=== PATIENT | female | born 1950 | race Caucasian/White ===

== ENCOUNTER → 2017-04-12 | Outpatient (CLI) | payer OTHER, MEDICARE ==
[~2017-04-12] MED LIST: ACET-1256 PO; ASPI325T39 PO; CALC-51 PO; CHOL100027 PO; LISI-792 PO; MAGN250T8 PO; METO25TA3 PO; MULT-506 PO
== END | disposition home or self-care (01) ==
LOC: C.MAMM 09:13
PROVIDERS: ATTEND Internal Medicine
DX: M81.0 Age-related osteoporosis without current pathological fracture (principal)

== ENCOUNTER 2020-04-06 03:36 | Inpatient (IN) ==
[2020-04-06] MEDS ORDERED: fentaNYL citrate 100 MCG/2 ML VIAL IV STA (03:53)
--- NOTE | 2020-04-06 04:21 | Emergency Department Note ---
Impression & Plan Hip fracture, right, Elbow fracture, right, Fall ED Provider Note NAME: KING SHIPMAN AGE: 69 SEX: F ARRIVES VIA: Ambulance INFORMANT: Patient ED PROVIDER(S): Jia Mckeon DO CHIEF COMPLAINT: Right hip pain PLAN: Disposition: Admitted Condition: Stable MEDICAL DECISION MAKING: This is a 69-year-old female patient with a history of hypertension and osteoporosis who unfortunately was pulled to the ground while walking her dog and suffered a right hip fracture and right elbow fracture. The patient did not strike her head or lose consciousness. I discussed the case with the hospitalist and they will evaluate for inpatient care and consult orthopedics. Triage Nursing notes reviewed and agree them. Prior medical records reviewed Vital Signs: reviewed and unremarkable Differential diagnosis: Pelvis fracture, right hip contusion, right hip fracture, right elbow fracture, right elbow contusion ER treatment provided: IV fentanyl IV morphine IV Zofran Sling placement to the right elbow Diagnostics interpreted by me: ECG: Sinus bradycardia at a rate of 53. There is no ST segment elevation or signs of ischemia Cardiac Monitoring: Normal sinus rhythm at a rate of 62. Imaging studies: As per my interpretation Right hip x-ray: Intertrochanteric fracture Right elbow x-ray: Olecranon fracture Laboratory studies: See below HPI: 69/F arrives for evaluation of right hip pain. The patient was walking her dog when she was pulled to the ground by the dog landing on her right side. She suffered an injury to the right hip and the right elbow. The patient laid there for approximately 1 hour before someone heard her yelling for help. EMS was called and she was transported here. ROS: See above HPI for pertinent positives & negatives. A total of 10 systems reviewed and were otherwise negative. PAST MEDICAL HISTORY:Hypertension and osteoporosis PAST SURGICAL HISTORY:See Below SOCIAL HISTORY:The patient lives alone: She does not smoke HOME MEDICATIONS:See list ALLERGIES:See Below VITALS:See Below PHYSICAL EXAMINATION: HEENT: Head - normocephalic and atraumatic. Pupils are equal, round, and reactive to light. Extraocular eye muscles are intact and sclera are anicteric. Nose - moist nasal mucosa without evidence of trauma or discharge. Mouth - moist buccal mucosa with no trauma to the teeth or signs of malocclusion. Neck: The neck is supple and there is no pain to palpation over the posterior cervical spine and no obvious step-offs or deformities. There is no JVD or tracheal deviation. Chest: There are no signs of deformities, contusions or abrasions to the chest wall. There is no obvious crepitus or paradoxical chest rise. Heart: Regular, rate, and rhythm. There is a normal S1 and S2 with no murmurs, clicks, or gallops appreciated. Lungs: Clear to auscultation bilaterally with no wheezes, rales, or rhonchi. Abdomen: Soft, completely nontender, nondistended, with good bowel sounds. There is no sign of trauma such as contusions, abrasions or penetrations. There are no palpable pulsatile masses or hepatosplenomegaly. There is no guarding, rigidity, or rebound noted. Pelvis: Stable to rock and compression. Extremities: The right lower extremity was shortened and internally rotated. Patient has tenderness to palpation over the right hip. The patient has a small abrasion over the right elbow but has pain to palpation over the olecranon. He has easily palpable distal radial pulse in that extremity. Other extremities are without evidence of trauma. Neuro: The patient is awake and alert and easily able to follow commands. Muscle strength is 5 out of 5 in all 4 extremities. Otherwise, neuro exam is unremarkable. Back: The entire thoracic, lumbar, and sacral spine were palpated. There are no obvious step-offs or deformities noted. There are no obvious signs of trauma such as contusions abrasions penetrations noted to the back. ED COURSE:0340: The patient was evaluated in room B9. A complete history and physical was performed. An IV lock was initiated and laboratory studies were drawn as above. A twelve- lead EKG was obtained. The patient went for plain films of the right hip. She was given 50 mcg of IV fentanyl for pain. This gave her minimal relief of her discomfort. The patient had a chest x-ray performed for preop reasons. She then complained of worsening right elbow pain and had an x-ray of the elbow which showed an olecranon fracture. A sling was placed. The patient had persistent right hip pain and was given 2 mg of IV morphine and 4 mg of IV Zofran for her discomfort. Case was discussed with the hospitalist and they will evaluate for further management. 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 Required: No Beliefs That Will Affect Care: None Current Living Situation: Alone Feels Safe at Home: Yes Assistive Devices: Walker Allergies Allergies Allergy/AdvReac Type Severity Reaction Status Date / Time No Known Allergies Allergy Verified 04/06/20 04:20 Home Meds Home Medications Medication Instructions Recorded Confirmed acetaminophen [Tylenol Extra 1,000 mg PO BID 04/06/20 04/06/20 Strength] aspirin 162.5 mg PO QAM 04/06/20 04/06/20 calcium carbonate-vitamin D3 2 tab PO QAM 04/06/20 04/06/20 [Calcium 600 + D(3)] cetirizine [Zyrtec] 10 mg PO QAM 04/06/20 04/06/20 cholecalciferol (vitamin D3) 25 mcg PO QAM 04/06/20 04/06/20 [Vitamin D3] lisinopril 20 mg PO QDD 04/06/20 04/06/20 metoprolol succinate 25 mg PO QDD 04/06/20 04/06/20 multivitamin 1 tab PO QAM 04/06/20 04/06/20 psyllium husk [Metamucil] 0.52 g PO DAILY 04/06/20 04/06/20 Results & Data (ED) Vital Signs Vital Signs - 24 hr 04/06/20 05:20 04/06/20 05:30 04/06/20 06:00 Pulse Rate 55 L 54 L 54 L Pulse Rate from SpO2 Sensor 55 L 54 L Respiratory Rate 16 12 14 Blood Pressure 121/58 L 101/50 L 101/52 L Blood Pressure Mean 72 60 59 Pulse Oximetry 96 93 93 Oxygen Delivery Method Room Air Room Air Room Air 04/06/20 06:30 Pulse Rate 53 L Pulse Rate from SpO2 Sensor Respiratory Rate 12 Blood Pressure 102/52 L Blood Pressure Mean 59 Pulse Oximetry Oxygen Delivery Method Laboratory Data Result diagrams: 04/06/20 04:20 04/06/20 04:20 Lab Results 04/06/20 04/06/20 04/06/20 Range/Units 04:20 04:20 04:20 WBC 6.98 (4.8-10.8) K/uL RBC 3.90 L (4.2-5.4) M/uL Hgb 12.5 (12.0-16.0) g/dL Hct 36.0 L (37-47) % MCV 92.3 (80-100) fL MCH 32.1 (25-34) pg MCHC 34.7 (32-36) g/dL RDW Std Deviation 40.2 (36.4-46.3) fL RDW Coeff of Dave 11.8 (11.5-14.5) % Plt Count 326 (130-400) K/uL MPV 9.0 (7.4-10.4) fL Immature Gran % (Auto) 0.3 % Neut % (Auto) 68.8 % Lymph % (Auto) 18.2 % [place] % (Auto) 11.3 % Eos % (Auto) 1.1 % Baso % (Auto) 0.3 % Neut # (Auto) 4.80 (1.4-6.5) K/uL Lymph # (Auto) 1.27 (1.2-3.4) K/uL [place] # (Auto) 0.79 H (0.11-0.59) K/uL Eos # (Auto) 0.08 (0-0.5) K/uL Baso # (Auto) 0.02 (0-0.2) K/uL Immature Gran # (Auto) 0.02 (0.00-0.02) K/uL PT 10.4 (9.0-12.0) Seconds INR 1.0 (0.9-1.1) APTT 24.1 (21.0-31.0) Seconds PTT Ratio 0.9 Sodium (136-145) mmol/L Potassium (3.5-5.1) mmol/L Chloride (98-107) mmol/L Carbon Dioxide (21-32) mmol/L Anion Gap (3-11) BUN (7-18) mg/dl Creatinine (0.6-1.2) mg/dl Est Cr Clr Drug Dosing ml/min Est GFR ( Amer) Est GFR (Non-Af Amer) BUN/Creatinine Ratio (10-20) Glucose (70-99) mg/dl Calcium (8.5-10.1) mg/dl Urine Color Urine Appearance (Clear) Urine pH (4.5-7.5) Ur Specific [place] (1.000-1.030) Urine Protein (Negative) Urine Glucose (UA) (Negative) Urine Ketones (Negative) Urine Blood (Negative) Urine Nitrite (Negative) Urine Bilirubin (Negative) Urine Urobilinogen (Negative) Ur Leukocyte Esterase (Negative) Blood Type B Positive Antibody Screen NEGATIVE 04/06/20 04/06/20 Range/Units 04:20 04:25 WBC (4.8-10.8) K/uL RBC (4.2-5.4) M/uL Hgb (12.0-16.0) g/dL Hct (37-47) % MCV (80-100) fL MCH (25-34) pg MCHC (32-36) g/dL RDW Std Deviation (36.4-46.3) fL RDW Coeff of Dave (11.5-14.5) % Plt Count (130-400) K/uL MPV (7.4-10.4) fL Immature Gran % (Auto) % Neut % (Auto) % Lymph % (Auto) % [place] % (Auto) % Eos % (Auto) % Baso % (Auto) % Neut # (Auto) (1.4-6.5) K/uL Lymph # (Auto) (1.2-3.4) K/uL [place] # (Auto) (0.11-0.59) K/uL Eos # (Auto) (0-0.5) K/uL Baso # (Auto) (0-0.2) K/uL Immature Gran # (Auto) (0.00-0.02) K/uL PT (9.0-12.0) Seconds INR (0.9-1.1) APTT (21.0-31.0) Seconds PTT Ratio Sodium 135 L (136-145) mmol/L Potassium 4.0 (3.5-5.1) mmol/L Chloride 105 (98-107) mmol/L Carbon Dioxide 23 (21-32) mmol/L Anion Gap 7.0 (3-11) BUN 18 (7-18) mg/dl Creatinine 0.96 (0.6-1.2) mg/dl Est Cr Clr Drug Dosing 44.1 ml/min Est GFR ( Amer) 69.4 Est GFR (Non-Af Amer) 59.9 BUN/Creatinine Ratio 18.5 (10-20) Glucose 113 H (70-99) mg/dl Calcium 9.2 (8.5-10.1) mg/dl Urine Color Yellow Urine Appearance Clear (Clear) Urine pH 8.5 H (4.5-7.5) Ur Specific [place] 1.007 (1.000-1.030) Urine Protein Negative (Negative) Urine Glucose (UA) Negative (Negative) Urine Ketones Negative (Negative) Urine Blood Negative (Negative) Urine Nitrite Negative (Negative) Urine Bilirubin Negative (Negative) Urine Urobilinogen Negative (Negative) Ur Leukocyte Esterase Negative (Negative) Blood Type Antibody Screen Administered Medications Hydromorphone HCl (Hydromorphone Inj 0.5 Mg/0.5 Ml Syr) 0.25 - 0.5 mg IV Q3H PRN PRN Reason: Moderate/Severe Pain Stop: 04/20/20 09:08 Last Admin: 04/06/20 09:38 Dose: 0.5 mg Documented by: [id number] Famotidine 20 mg/ Syringe 5 mls @ 2.5 mls/min IV Q12 [facility] Stop: 05/06/20 20:59 Last Admin: 04/06/20 21:15 Dose: 2.5 mls/min Documented by: [id number] Cefazolin Sodium (Ancef 1000mg) 1,000 mg in 7.5 mls @ 2.5 mls/min IV PREOP [facility]; Protocol Stop: 04/07/20 05:59 Last Admin: 04/06/20 13:58 Dose: 2.5 mls/min Documented by: [id number] Sodium Chloride (Nss 1000ml) 1,000 mls @ 100 mls/hr IV .Q10H [facility] Stop: 04/07/20 06:00 Last Admin: 04/06/20 21:10 Dose: 100 mls/hr Documented by: [id number] Cefazolin Sodium (Ancef 1000mg) 1,000 mg in 7.5 mls @ 2.5 mls/min IV Q8H [facility]; Protocol Stop: 04/07/20 06:02 Last Admin: 04/06/20 21:59 Dose: 2.5 mls/min Documented by: [id number] Metoprolol Succinate (Metoprolol Succ 25mg Ext Rel Tab) 25 mg PO QDD [facility] Stop: 05/06/20 16:29 Last Admin: 04/06/20 18:55 Dose: Not Given Documented by: [id number] Senna/Docusate Sodium (Docusate Sodium/Senna 50/8.6mg Tab) 2 tab PO HS LYNDA Stop: 05/06/20 20:59 Last Admin: 04/06/20 21:15 Dose: 2 tab Documented by: [id number] Discontinued Medications Bupivacaine HCl (Bupivacaine 0.5 % 5 Mg/1 Ml Mpf 30ml Vial) Confirm Administered Dose 30 ml .ROUTE .STK-MED ONE Stop: 04/06/20 14:24 Last Admin: 04/06/20 15:25 Dose: 22 ml Documented by: [id number] Bupivacaine HCl (Bupivacaine 0.5 % 5 Mg/1 Ml Mpf 30ml Vial) Confirm Administered Dose 30 ml .ROUTE .STK-MED ONE Stop: 04/06/20 16:17 Last Admin: 04/06/20 17:15 Dose: 10 ml Documented by: [id number] Famotidine (Famotidine 20mg/5ml Iv Push) Confirm Administered Dose 20 mg IV .STK-MED ONE Stop: 04/06/20 08:15 Last Admin: 04/06/20 08:17 Dose: 20 mg Documented by: [id number] Fentanyl Citrate (Fentanyl Citrate 100 Mcg/2 Ml Vial) 50 mcg IV NOW STA Stop: 04/06/20 03:54 Last Admin: 04/06/20 04:03 Dose: 50 mcg Documented by: [id number] Potassium Chloride/Sodium Chloride (Normal Saline W/20 Meq Kcl) 20 meq in 1,000 mls @ 100 mls/hr IV .Q10H LYNDA Stop: 05/06/20 09:08 Last Infusion: 04/06/20 19:46 Dose: 0 mls/hr Documented by: [id number] Admin: 04/06/20 09:46 Dose: 100 mls/hr Documented by: [id number] Morphine Sulfate (Morphine Sulfate 2 Mg/Ml Carp) 2 mg IV NOW STA Stop: 04/06/20 05:01 Last Admin: 04/06/20 05:14 Dose: 2 mg Documented by: [id number] Ondansetron HCl (Ondansetron Inj 2 Mg/Ml 2 Ml Vial) 4 mg IV NOW STA Stop: 04/06/20 05:01 Last Admin: 04/06/20 05:14 Dose: 4 mg Documented by: [id number] Discharge Plan Visit Data Chief Complaint: Fall Stated Complaint: FALL ED Provider: Jia Mckeon Discharge Problem: Hip fracture, right, Elbow fracture, right, Fall Patient Disposition: Admitted As Inpatient Discharge Instructions Interventions: ED Discharge Assessment Last Done: 04/06/20 08:27 Discharge Problem: Hip fracture, right Qualifiers: Encounter type: initial encounter Fracture type: closed Qualified Code(s): S72.001A - Fracture of unspecified part of neck of right femur, initial encounter for closed fracture Elbow fracture, right Qualifiers: Encounter type: initial encounter Fracture type: closed Qualified Code(s): S42.401A - Unspecified fracture of lower end of right humerus, initial encounter for closed fracture Fall Qualifiers: Encounter type: initial encounter Qualified Code(s): W19.XXXA - Unspecified fall, initial encounter
[2020-04-06 04:33] LABS: Basophils # (auto) 0.02 K/uL (0-0.2); Basophils % (auto) 0.3 %; Eosinophils # (auto) 0.08 K/uL (0-0.5); Eosinophils % (auto) 1.1 %; Hemoglobin 12.5 g/dL (12.0-16.0); Immature Granulocytes # (auto) 0.02 K/uL (0.00-0.02); Immature Granulocytes % (auto) 0.3 %; Lymphocytes # (auto) 1.27 K/uL (1.2-3.4); Lymphocytes % (auto) 18.2 %; Mean Corpuscular Hemoglobin 32.1 pg (25-34); Mean Corpuscular Hgb Conc 34.7 g/dL (32-36); Mean Corpuscular Volume 92.3 fL (80-100); Monocytes # (auto) 0.79 K/uL (0.11-0.59); Monocytes % (auto) 11.3 %; Neutrophils % (auto) 68.8 %; Platelet Count 326 K/uL (130-400); RDW Coefficient of Variation 11.8 % (11.5-14.5); RDW Standard Deviation 40.2 fL (36.4-46.3); White Blood Count 6.98 K/uL (4.8-10.8)
[2020-04-06 04:45] LABS: Partial Thromboplastin Ratio 0.9; Partial Thromboplastin Time 24.1 Seconds (21.0-31.0); Prothrombin Time 10.4 Seconds (9.0-12.0)
[2020-04-06 04:47] LABS: Appearance Urine Clear (Clear); Bilirubin Urine Negative (Negative); Blood Urine Negative (Negative); Color Urine Yellow; Glucose Urine UA Negative (Negative); Ketones Urine Negative (Negative); Leukocyte Esterase Urine Negative (Negative); Nitrite Urine Negative (Negative); Protein Urine Negative (Negative); Specific Gravity Urine 1.007 (1.000-1.030); Urobilinogen Urine Negative (Negative); pH Urine 8.5 (4.5-7.5)
[2020-04-06 04:51] LABS: BUN Creatinine Ratio 18.5 (10-20); Calcium 9.2 mg/dl (8.5-10.1); Creatinine Clr Calc Pharmacy 44.1 ml/min; Est GFR (African American) 69.4; Est GFR (Non-African American) 59.9
[2020-04-06] MEDS ORDERED: ONDANSETRON INJ 2 MG/ML 2 ML VIAL IV STA (05:00)
[2020-04-06] MEDS ORDERED: MoRPHine SULFATE 2 MG/ML CARP IV STA (05:00)
[2020-04-06] MEDS ORDERED: ceFAZolin 1000MG 1,000 MG/7.5 ML SYR IV SCH (06:00)
--- NOTE | 2020-04-06 06:45 | History & Physical Report ---
Date of Service April 06, 2020 Assessment & Plan (1) Closed right hip fracture: Closed right hip fracture status post mechanical fall- Geriatric hip fracture protocol Chapin's traction Acetaminophen 650 mg p.o. every 6 hours PRN mild pain or temperature, or 1000 mg IV every 8 hours PRN. Oxycodone 5 mg p.o. every 6 hours PRN moderate pain Dilaudid 0.25-0.5 mg IV every 3 hours. Severe pain NSS + KCl 20 mEq at 100 mils per hour Zofran 4 mg IV every 6 hours as needed Famotidine 20 mg IV every 12 hours Consult [facility] COVID19 test ordered stat preop EKG shows sinus bradycardia at 53 bpm, with no acute ST-T changes. Chest x-ray is normal. Patient is considered an acceptable medical risk for hip repair surgery Present on Admission?: Yes (2) Hypertension: Hypertension/history of symptomatic PVCs- Continue metoprolol succinate 25 mg p.o. daily in a.m. Hold lisinopril 20 mg daily and aspirin 162.5 mg daily Present on Admission?: Yes (3) Symptomatic PVCs: See above Present on Admission?: Yes (4) Allergic rhinitis: Resume cetirizine, 10mg po. every morning as needed post surgery Present on Admission?: Yes History of Present Illness Chief Complaint: The patient presents to the emergency room after sustaining acute right hip pain during a fall while walking her dog this morning. Primary Care Provider: Clementina Ortiz MD The patient is a 69-year-old female with a past medical history including hypertension, allergic rhinitis, and vitamin D deficiency. She presents to the emergency department after developing acute right hip pain and right elbow pain after a fall while she was walking her dog. X-rays in the emergency department revealed a closed right hip fracture. She reports that her right hip pain pain is reasonably well controlled well staying still. Her right elbow pain is improving with application of ice. Allergies Allergy/AdvReac Type Severity Reaction Status Date / Time No Known Allergies Allergy Verified 04/06/20 04:20 Home Medications Home Medications Medication Instructions Recorded Confirmed Type acetaminophen [Tylenol Extra 1,000 mg PO BID 04/06/20 04/06/20 History Strength] aspirin 162.5 mg PO QAM 04/06/20 04/06/20 History calcium carbonate-vitamin D3 2 tab PO QAM 04/06/20 04/06/20 History [Calcium 600 + D(3)] cetirizine [Zyrtec] 10 mg PO QAM 04/06/20 04/06/20 History cholecalciferol (vitamin D3) 25 mcg PO QAM 04/06/20 04/06/20 History [Vitamin D3] lisinopril 20 mg PO QDD 04/06/20 04/06/20 History metoprolol succinate 25 mg PO QDD 04/06/20 04/06/20 History multivitamin 1 tab PO QAM 04/06/20 04/06/20 History psyllium husk [Metamucil] 0.52 g PO DAILY 04/06/20 04/06/20 History Past Med/Surg History Medical History (Updated 04/06/20 @ 06:57 by Harvey Braun MD) Allergic rhinitis Hypertension Social History Smoking Status: Never smoker Feels Safe at Home: Yes Review of Systems Review of Systems: The patient denies chest pain, palpitations, shortness of breath, dyspnea on exertion, cough, lower extremity swelling, sore throat, fevers, chills, sweats, weight change, fatigue, nausea, vomiting, diarrhea , constipation, abdominal pain, pelvic pain, blood in urine or stool, dysuria, urinary frequency or urgency, lightheadedness, dizziness, headache, memory loss, loss of consciousness, rash, abnormal bruising or bleeding, imbalance, generalized weakness, numbness or tingling in left arm or leg, generalized arthralgias or myalgias, back or neck pain, or night sweats. The review of systems is otherwise negative other than for that already noted above, and at least 10 systems have been reviewed. Physical Exam Physical Exam: The patient is awake, alert and oriented 3, well developed and well nourished, normocephalic and atraumatic, lying in bed and in no acute distress. HEENT--PERRL, EOMI, mucous membranes and oropharynx normal. Neck--supple. No JVD. No bruits. Thyroid normal, trachea midline, no adenopathy. Heart--normal S1 and S2. No murmurs, rubs or gallops. Lungs--clear bilaterally, no respiratory distress, no accessory muscle use. Abdomen--normal bowel sounds and soft. Nontender. Nondistended. Extremities--no cyanosis or clubbing. No edema. There are good distal pulses b/l. Dermatologic--normal skin turgor, normal color, no abnormal lymph nodes, no rash. Neurologic--cranial nerves II through XII grossly intact. Rheumatologic--decreased range of motion and pain over right hip Psychiatric--normal affect. Results & Data Results & Data ([facility]) Vital Signs (Past 12 Hours) Vital Signs Temp Pulse Resp BP Pulse Ox 04/06/20 06:00 54 L 14 101/52 L 93 04/06/20 05:30 54 L 12 101/50 L 93 04/06/20 05:20 55 L 16 121/58 L 96 04/06/20 03:50 97.7 F 57 L 18 112/77 100 04/06/20 03:43 55 L 13 112/77 100 Laboratory Results Laboratory Results WBC 6.98 K/uL (4.8-10.8) 04/06/20 04:20 RBC 3.90 M/uL (4.2-5.4) L 04/06/20 04:20 Hgb 12.5 g/dL (12.0-16.0) 04/06/20 04:20 Hct 36.0 % (37-47) L 04/06/20 04:20 MCV 92.3 fL (80-100) 04/06/20 04:20 MCH 32.1 pg (25-34) 04/06/20 04:20 MCHC 34.7 g/dL (32-36) 04/06/20 04:20 RDW Std Deviation 40.2 fL (36.4-46.3) 04/06/20 04:20 RDW Coeff of Dave 11.8 % (11.5-14.5) 04/06/20 04:20 Plt Count 326 K/uL (130-400) 04/06/20 04:20 MPV 9.0 fL (7.4-10.4) 04/06/20 04:20 Immature Gran % (Auto) 0.3 % 04/06/20 04:20 Neut % (Auto) 68.8 % 04/06/20 04:20 Lymph % (Auto) 18.2 % 04/06/20 04:20 [place] % (Auto) 11.3 % 04/06/20 04:20 Eos % (Auto) 1.1 % 04/06/20 04:20 Baso % (Auto) 0.3 % 04/06/20 04:20 Neut # (Auto) 4.80 K/uL (1.4-6.5) 04/06/20 04:20 Lymph # (Auto) 1.27 K/uL (1.2-3.4) 04/06/20 04:20 [place] # (Auto) 0.79 K/uL (0.11-0.59) H 04/06/20 04:20 Eos # (Auto) 0.08 K/uL (0-0.5) 04/06/20 04:20 Baso # (Auto) 0.02 K/uL (0-0.2) 04/06/20 04:20 Immature Gran # (Auto) 0.02 K/uL (0.00-0.02) 04/06/20 04:20 PT 10.4 Seconds (9.0-12.0) 04/06/20 04:20 INR 1.0 (0.9-1.1) 04/06/20 04:20 APTT 24.1 Seconds (21.0-31.0) 04/06/20 04:20 PTT Ratio 0.9 04/06/20 04:20 Sodium 135 mmol/L (136-145) L 04/06/20 04:20 Potassium 4.0 mmol/L (3.5-5.1) 04/06/20 04:20 Chloride 105 mmol/L (98-107) 04/06/20 04:20 Carbon Dioxide 23 mmol/L (21-32) 04/06/20 04:20 Anion Gap 7.0 (3-11) 04/06/20 04:20 BUN 18 mg/dl (7-18) 04/06/20 04:20 Creatinine 0.96 mg/dl (0.6-1.2) 04/06/20 04:20 Est Cr Clr Drug Dosing 44.1 ml/min 04/06/20 04:20 Est GFR ( Amer) 69.4 04/06/20 04:20 Est GFR (Non-Af Amer) 59.9 04/06/20 04:20 BUN/Creatinine Ratio 18.5 (10-20) 04/06/20 04:20 Glucose 113 mg/dl (70-99) H 04/06/20 04:20 Calcium 9.2 mg/dl (8.5-10.1) 04/06/20 04:20 Urine Color Yellow 04/06/20 04:25 Urine Appearance Clear (Clear) 04/06/20 04:25 Urine pH 8.5 (4.5-7.5) H 04/06/20 04:25 Ur Specific [place] 1.007 (1.000-1.030) 04/06/20 04:25 Urine Protein Negative (Negative) 04/06/20 04:25 Urine Glucose (UA) Negative (Negative) 04/06/20 04:25 Urine Ketones Negative (Negative) 04/06/20 04:25 Urine Blood Negative (Negative) 04/06/20 04:25 Urine Nitrite Negative (Negative) 04/06/20 04:25 Urine Bilirubin Negative (Negative) 04/06/20 04:25 Urine Urobilinogen Negative (Negative) 04/06/20 04:25 Ur Leukocyte Esterase Negative (Negative) 04/06/20 04:25 Blood Type B Positive 04/06/20 04:20 Antibody Screen NEGATIVE 04/06/20 04:20 Code Status & VTE Plan Code Status Full code VTE Prophylaxis Plan VTE Prophylaxis will be ordered: Yes PG Care Time/CCT Total # of Minutes Spent Total Time Spent with Patient: Total time spent is greater than 50% in coordination of care (as documented) at patient's floor/unit and/or counseling patient: Coding Level of Care Code 02437 Initial Inpt Care Lvl 3 Diagnoses Closed right hip fracture S72.001A Hypertension I10 Symptomatic PVCs I49.3 Allergic rhinitis J30.9
--- NOTE | 2020-04-06 07:43 | XRay Report ---
XR elbow RT 2V CLINICAL HISTORY: Fall. COMPARISON: None FINDINGS: Joint effusion is present. Note is made of an acute comminuted moderately displaced olecra non fracture which extends to the ulnotrochlear articulation. There is no acute fracture of the dista l right humerus or proximal right radius. Soft tissue swelling overlying the olecranon is noted. IMPRESSION: 1. Acute comminuted displaced olecranon fracture. 2. Joint effusion and soft tissue swelling overlying the olecranon. ACT 112: Negative or not required by law. Electronically signed by: Diego Lucio M.D. 04/06/2020 7:42 AM
--- NOTE | 2020-04-06 07:51 | XRay Report ---
XR hip RT min 2V CLINICAL HISTORY: fall - rt hip pain COMPARISON: None FINDINGS: Note is made of an acute displaced intertrochanteric fracture of the left femur. Fracture is angulated. No additional fractures are identified on this examination. IMPRESSION: Acute displaced intertrochanteric fracture of the right femur. ACT 112: Negative or not required by law. Electronically signed by: Diego Lucio M.D. 04/06/2020 7:49 AM
--- NOTE | 2020-04-06 08:00 | XRay Report ---
XR chest 1V portable CLINICAL HISTORY: Preoperative evaluation. COMPARISON STUDY: Chest radiograph February 22, 2014. FINDINGS: Lung volumes are normal. Lungs are clear. There is no pneumothorax or pleural effusion. Car diac size is normal. Mediastinal contours are normal. There is no evidence for pulmonary edema. IMPRESSION: No acute cardiopulmonary findings. ACT 112: Negative or not required by law. Electronically signed by: Diego Lucio M.D. 04/06/2020 7:59 AM
[2020-04-06] MEDS ORDERED: FAMOTIDINE 20MG/5ML IV PUSH IV ONE (08:14)
[2020-04-06] MEDS ORDERED: ONDANSETRON INJ 2 MG/ML 2 ML VIAL IV PRN ×3 (09:09→18:39)
[2020-04-06] MEDS ORDERED: MAGNESIUM HYDROXIDE SUSP 30 ML UDC PO PRN ×2 (09:09→18:39)
[2020-04-06] MEDS ORDERED: NALOXONE HCL 0.4 MG/1 ML VIAL/CARP IV PRN ×3 (09:09→18:39)
[2020-04-06] MEDS ORDERED: ACETAMINOPHEN 1000 MG/100 ML IV IV PRN (09:09)
[2020-04-06] MEDS ORDERED: bisacodyL 10 MG SUPP PR PRN ×2 (09:09→18:39)
[2020-04-06] MEDS: HYDROmorphone INJ 0.5 MG/0.5 ML SYR IV PRN (09:38)
[2020-04-06] MEDS ORDERED: NSS + 20MEQ KCL 20 MEQ/1,000 ML BAG IV SCH (10:00)
--- NOTE | 2020-04-06 10:56 | Anesthesiology Consultation ---
Date of Service April 06, 2020 Assessment & Plan Chart Review Chart Review: Acceptable Risk for Surgery and Patient NOT seen in Pre Admission Testing Consults Requested none ASA [id number] Proposed Anesthesia Anesthesia Type: General History Surgery Operation Date: 04/06/20 12:00 Proposed Procedures s Open Reduction Internal Fixation Elbow(Right) - Jaime Joel MD p Intramedullary Nail Tibia(Right) - Jaime Joel MD Height/Weight Height: 5 ft 7 in Weight: 50.3 kg Allergies Allergy/AdvReac Type Severity Reaction Status Date / Time No Known Allergies Allergy Verified 04/06/20 04:20 Medications Home Medications Medication Instructions Recorded Confirmed Last Taken acetaminophen [Tylenol Extra 1,000 mg PO BID 04/06/20 04/06/20 04/05/20 Strength] aspirin 162.5 mg PO QAM 04/06/20 04/06/20 04/05/20 calcium carbonate-vitamin D3 2 tab PO QAM 04/06/20 04/06/20 04/05/20 [Calcium 600 + D(3)] cetirizine [Zyrtec] 10 mg PO QAM 04/06/20 04/06/20 04/05/20 cholecalciferol (vitamin D3) 25 mcg PO QAM 04/06/20 04/06/20 04/05/20 [Vitamin D3] lisinopril 20 mg PO QDD 04/06/20 04/06/20 04/05/20 metoprolol succinate 25 mg PO QDD 04/06/20 04/06/20 04/05/20 multivitamin 1 tab PO QAM 04/06/20 04/06/20 04/05/20 psyllium husk [Metamucil] 0.52 g PO DAILY 04/06/20 04/06/20 04/05/20 Active Medications Generic Name Dose Route Start Last Admin Trade Name Freq PRN Reason Stop Dose Admin Hydromorphone HCl 0.25 - 0.5 mg 04/06/20 09:09 04/06/20 09:38 Hydromorphone Inj 0.5 Mg/0.5 Ml Syr IV 04/20/20 09:08 0.5 mg Q3H PRN Administration Moderate/Severe Pain Potassium Chloride/Sodium Chloride 20 meq in 1,000 mls @ 100 mls/hr 04/06/20 10:00 04/06/20 09:46 Normal Saline W/20 Meq Kcl IV 05/06/20 09:08 100 mls/hr .Q10H LYNDA Administration Past Medical History Medical History Allergic rhinitis Hypertension Exercise / Class Metabolic Activity III < 4 Walking/Shop/Light housework Past Anesthesia History No Hx of Anesthesia Complications and No Family Hx of Anesthesia Complications History of PONV No Hx of PONV and No Hx of Motion Sickness Social History Smoking Status: Never smoker Do You Dip or Chew Tobacco: No Hx Alcohol Use: No Hx Substance Use: No Physical Exam Vital Signs Last Vital Signs Temp 36.3 C L 04/06/20 08:40 Pulse 56 L 04/06/20 08:40 Resp 16 04/06/20 08:40 BP 114/70 04/06/20 08:40 Pulse Ox 99 04/06/20 08:40 Testing Laboratory Results 04/06/20 04:20 04/06/20 04:20 PT 10.4 Seconds (9.0-12.0) 04/06/20 04:20 INR 1.0 (0.9-1.1) 04/06/20 04:20 APTT 24.1 Seconds (21.0-31.0) 04/06/20 04:20 Urine Color Yellow 04/06/20 04:25 Urine Appearance Clear (Clear) 04/06/20 04:25 Urine pH 8.5 (4.5-7.5) H 04/06/20 04:25 Ur Specific [place] 1.007 (1.000-1.030) 04/06/20 04:25 Urine Protein Negative (Negative) 04/06/20 04:25 Urine Glucose (UA) Negative (Negative) 04/06/20 04:25 Urine Ketones Negative (Negative) 04/06/20 04:25 Urine Nitrite Negative (Negative) 04/06/20 04:25 Ur Leukocyte Esterase Negative (Negative) 04/06/20 04:25 Blood Type B Positive 04/06/20 04:20 Antibody Screen NEGATIVE 04/06/20 04:20 Electrocardiogram Date: 04/06/20 Findings: + SB @ (at 53 ,otherwise normal) Chest X-Ray Date: 04/06/20 Findings: + NAD Other Testing 10/02/2012-Carotid U/S-no H/D sig. stenosis;mild athersclerotic plaque
--- NOTE | 2020-04-06 12:23 | Electrocardiogram Report ---
Test Reason : Blood Pressure : / mmHG Vent. Rate : 053 BPM Atrial Rate : 053 BPM P-R Int : 180 ms QRS Dur : 092 ms QT Int : 442 ms P-R-T Axes : 057 041 064 degrees QTc Int : 414 ms Poor data quality, interpretation may be adversely affected Sinus bradycardia Otherwise normal ECG When compared with ECG of 22-FEB-2014 14:09, No significant change was found Confirmed by Sandro Serrano ([id number]) on 04/06/2020 12:23:07 PM Referred By: REFERRED SELF Confirmed By:Sandro Serrano
[2020-04-06] MEDS ORDERED: ONDANSETRON INJ 2 MG/ML 2 ML VIAL ONE (12:45)
[2020-04-06] MEDS ORDERED: GLYCOPYRROLATE 0.2 MG/ML VIAL ONE (12:45)
[2020-04-06] MEDS ORDERED: LIDOCAINE HCL 2% 2 ML VIAL/AMP(20MG/ML) INFIL ONE (12:45)
[2020-04-06] MEDS ORDERED: fentaNYL citrate 100 MCG/2 ML VIAL ONE ×2 (12:45→16:22)
[2020-04-06] MEDS ORDERED: DEXAMETHASONE SOD INJ 4 MG/ML VIAL ONE (12:45)
[2020-04-06] MEDS ORDERED: NEOSTIGMINE METHYLSULFATE 5 MG/5 ML SYR ONE (12:45)
[2020-04-06] MEDS ORDERED: PROPOFOL IV EMULSION 10 MG/ML 20 ML VIAL IV ONE (12:45)
[2020-04-06] MEDS ORDERED: ROCURONIUM BROMIDE 10 MG/ML 5 ML VIAL IV ONE (12:45)
[2020-04-06] MEDS ORDERED: MIDAZOLAM HCL 1 MG/ML 2ML VIAL ONE (13:21)
[2020-04-06] MEDS ORDERED: BUPIVACAINE 0.5 % 5 MG/1 ML MPF 30ML VIAL ONE ×2 (14:23→16:16)
--- NOTE | 2020-04-06 17:20 | Post Operative Brief Note ---
Immediate Post Op Note v1 Date of Surgery April 06, 2020 Pre & Post Diagnosis Operation Date: 04/06/20 14:00 Pre-Op Diagnosis: 1. Acute displaced intertrochanteric fracture of the right femur 2. Acute comminuted displaced olecranon fracture right Post-Op Diagnosis: 1. Acute displaced intertrochanteric fracture of the right femur 2. Acute comminuted displaced olecranon fracture right I identified the patient and participated in the time-out.: Yes Procedure Operation Date: 04/06/20 14:00 Actual Procedures p Open Reduction Internal Fixation Right Olecranon Elbow(Right) - Jaime Joel MD s Intramedullary Anand Right Femur(Right) - Jaime Joel MD Surgeon Jaime Joel MD Folder Inspector jackie viera PA-c Estimated Blood Loss 100 Findings Consistent with Post-Op Diagnosis
--- NOTE | 2020-04-06 17:27 | Fluoroscopy Report ---
INTRAOPERATIVE RADIOGRAPHS CLINICAL HISTORY: Open reduction and internal fixation of the right femur. Fluoroscopy time: 194 seconds. FINDINGS: 4 spot fluoroscopic views of the right femur are correlated with radiographs dated 04/06/20 20. Intertrochanteric and intramedullary nails have been placed transfixing an intertrochanteric frac ture. There has been temple of near-anatomic alignment. A single cortical lag screw transfixes t he distal end of the intramedullary nail. IMPRESSION: Intraoperative images from open reduction and internal fixation of the right proximal fem ur as above. Electronically signed by: Quan Hamlin M.D. 04/06/2020 3:54 PM
--- NOTE | 2020-04-06 17:27 | Fluoroscopy Report ---
INTRAOPERATIVE RADIOGRAPHS CLINICAL HISTORY: Open reduction and internal fixation of the right femur. Fluoroscopy time: 194 seconds. FINDINGS: 4 spot fluoroscopic views of the right femur are correlated with radiographs dated 04/06/20 20. Intertrochanteric and intramedullary nails have been placed transfixing an intertrochanteric frac ture. There has been jewish of near-anatomic alignment. A single cortical lag screw transfixes t he distal end of the intramedullary nail. IMPRESSION: Intraoperative images from open reduction and internal fixation of the right proximal fem ur as above. Electronically signed by: Quan Hamlin M.D. 04/06/2020 3:54 PM
--- NOTE | 2020-04-06 17:38 | Fluoroscopy Report ---
INTRAOPERATIVE RADIOGRAPHS CLINICAL HISTORY: Open reduction and internal fixation of the right elbow. Fluoroscopy time: 21 seconds. FINDINGS: 4 spot fluoroscopic views of the right elbow are correlated with radiographs dated 04/06/20 20. There has been buttress plate fixation of an olecranon process fracture with orthodox of near- anatomic alignment. At least 7 cortical lag screws transfix the buttress plate. The orthopedic hardwa re appears intact. Overlying soft tissue edema is noted. IMPRESSION: Intraoperative images from open reduction and internal fixation of the olecranon as above . Electronically signed by: Quan Hamlin M.D. 04/06/2020 5:36 PM
[2020-04-06] MEDS ORDERED: ATROPINE SULFATE 0.1 MG/ML 10ML SYR IV PRN (17:55)
[2020-04-06] MEDS ORDERED: LABETALOL HCL IV 5 MG/ML 20ML IV PRN (17:55)
[2020-04-06] MEDS ORDERED: fentaNYL citrate 100 MCG/2 ML VIAL IV PRN (17:55)
[2020-04-06] MEDS ORDERED: FLUMAZENIL 0.1 MG/1 ML 10 ML VIAL IV PRN (17:55)
[2020-04-06] MEDS ORDERED: ePHEDrine sulfate 50 MG/ML AMP IV PRN (17:55)
[2020-04-06] MEDS ORDERED: PROMETHAZINE HCL 12.5 MG in SODIUM CHLORIDE 0.9% 50 ML IV PRN (17:55)
--- NOTE | 2020-04-06 18:32 | Consultation Report ---
DATE OF CONSULTATION: 04/06/2020 Status post anterior right hip fracture, right olecranon fracture. INDICATIONS: This 69-year-old female, who was walking her dog at approximately 2:00 a.m., she sustained a mechanical trip and fall with complaints of pain in the right hip and the right elbow. She was seen in the Emergency Department, diagnosed with a fracture and referred for definitive treatment. PAST MEDICAL HISTORY: Hypertension, allergic rhinitis, known history of osteoporosis. MEDICATIONS: 1. Tylenol. 2. Aspirin. 3. Calcium. 4. Zyrtec. 5. Lisinopril. 6. Metoprolol. 7. Multivitamin. 8. Metamucil. LABORATORY STUDIES: Hemoglobin 12.5, white count 6.98. UA negative. PHYSICAL EXAMINATION: Right lower extremity exam, she has pain with log roll of the right hip. She has no open injuries. Right calf is nontender to palpation. She can flex and extend the ankle, but is limited secondary to discomfort. Right elbow exam does show a displaced olecranon fracture which is palpable, small hematoma is seen over the olecranon. Radial, ulnar, median nerves are grossly intact to function, but exam is limited secondary to discomfort. IMAGING: AP, lateral of the right hip does show displaced intertrochanteric hip fracture. Varus angulation is seen. Minimal comminution seen in the greater trochanteric area. Three views of the right elbow shows a displaced olecranon fracture. Mild to moderate amount of comminution is seen. She has good alignment of the radial head with the capitellum. ASSESSMENT: A 69-year-old female with: 1. Right intertrochanteric hip fracture. 2. Right olecranon fracture, displaced. PLAN: Discussed findings and treatment with her. I discussed the nature of the injury. We discussed operative versus nonoperative treatment. RECOMMENDATION: 1. Right intramedullary nail fixation of intertrochanteric hip fracture. 2. Right open reduction and internal fixation of olecranon. I discussed personally with the hospitalist service and at this point in time, she is stable for surgical treatment. We will plan for surgical treatment today. May do tension band K-wire versus plate for the olecranon. The risks and benefits have been discussed including, but not limited to infection, nerve injury, stiffness, loss of motion, decreased ambulatory status, anesthesia complications, etc.
--- NOTE | 2020-04-06 18:49 | Anesthesiology Progress Note ---
Date of Service April 06, 2020 Anesthesia Post Procedure Vital Signs Vital Signs: Temp Pulse Pulse Pulse Resp BP BP 04/06/20 18:42 36.5 C 50 L 14 114/68 04/06/20 18:22 36.4 C L 53 L 14 106/49 L 04/06/20 18:10 55 L 14 116/59 L 04/06/20 18:00 56 L 18 110/54 L 04/06/20 17:50 60 14 113/58 L 04/06/20 17:42 36.8 C 68 14 122/66 04/06/20 11:36 36.9 C 62 16 104/63 04/06/20 08:40 36.3 C L 56 L 16 114/70 04/06/20 08:18 87 20 108/50 L 04/06/20 08:00 54 L 12 88/42 L 04/06/20 07:31 55 L 16 100/42 L 04/06/20 07:30 57 L 15 04/06/20 07:00 61 14 91/53 L 04/06/20 06:30 53 L 12 102/52 L 04/06/20 06:00 54 L 14 101/52 L 04/06/20 05:30 54 L 12 101/50 L 04/06/20 05:20 55 L 16 121/58 L 04/06/20 03:50 36.5 C 57 L 18 112/77 04/06/20 03:43 55 L 13 112/77 Pulse Ox 04/06/20 18:42 100 04/06/20 18:22 95 04/06/20 18:10 95 04/06/20 18:00 100 04/06/20 17:50 100 04/06/20 17:42 100 04/06/20 11:36 96 04/06/20 08:40 99 04/06/20 08:18 100 04/06/20 08:00 04/06/20 07:31 04/06/20 07:30 04/06/20 07:00 04/06/20 06:30 04/06/20 06:00 93 04/06/20 05:30 93 04/06/20 05:20 96 04/06/20 03:50 100 04/06/20 03:43 100 Pain Intensity Right Hip: Pain Intensity: 10 Transfer of Care Handoff Completed per policy Notes Mental Status: alert / awake / arousable Patient Amnestic to Procedure: Yes Nausea / Vomiting: adequately controlled Pain: adequately controlled Airway Patency, RR, SpO2: stable & adequate BP & HR: stable & adequate Hydration State: stable & adequate Anesthetic Complications: no major complications apparent
[2020-04-06] MEDS: METOPROLOL SUCC 25MG EXT REL TAB PO SCH (18:55)
--- NOTE | 2020-04-06 19:55 | Operative Report (OR) ---
DATE OF OPERATION: 04/06/2020 PREOPERATIVE DIAGNOSES: 1. Right intertrochanteric hip fracture with displacement. 2. Right olecranon fracture, displaced, comminuted. PROCEDURE: 1. Right intramedullary nail fixation of intertrochanteric hip fracture. 2. Right open reduction and internal fixation of olecranon fracture with plate. SURGEON: Angel Joel MD. RAIL PROJECT ENGINEER: Israel Rodas PA-C. INDICATIONS: This is a 69-year-old female who sustained the above-mentioned injuries after a fall. She presents for intramedullary nail fixation of the hip and ORIF of the olecranon. The risks and benefits have been discussed including, but not limited to, risk of infection, nerve injury, stiffness, loss of motion, failure to improve, etc. Reasonable outcomes and options of treatment were discussed. An explanation of appropriate alternatives to the procedure that may be advantageous were discussed and their risks and benefits, as well as the risks and benefits of not proceeding with treatment. I offered to answer any additional inquiries concerning the treatment involved. All the patient's questions were answered. The patient is agreeable, understanding of the treatment plan and alternatives, and wishes to proceed with the treatment plan. ANESTHESIA: General. DESCRIPTION OF OPERATION: The patient was placed on the fracture table and longitudinal traction was applied. This did result in good reduction of a hip fracture. After the patient was prepped and draped in standard fashion, I made a longitudinal incision about 2 inches in length superior to the greater trochanter. I bluntly dissected through the fascial layer and the greater trochanter was identified. I then placed a guidewire for a Synthes TFN nail into the greater trochanter. This was placed in the central aspect of the canal of the femur at a 6-degree angle on the AP x-ray. Once this was accomplished, I then overreamed with a size 13 reamer. The patient did show evidence of osteoporosis and bones were radiographically thin. I also overdrilled with the entry reamer prior to passing the second reamer down the canal. The guidewire was placed in the canal and then over the guidewire, I placed a Synthes TFN mid length nail. This was placed in appropriate position and then I placed a guidewire up into the femoral neck and care was taken to maintain the center-center position on a C-arm. I made an incision over the guidewire and inserted the jig down to bone. I then drilled the anterior cortical reamer followed by the second reamer. I selected a size 95 screw and this was placed in slight compression fashion. This resulted in excellent fixation and alignment. I then made an additional incision for the interlocking screw and the guides were placed. I drilled the proximal cortex, but the guide did not line up with the nail, so I placed a screw in a freehand fashion. Size 34 screw was selected and this was replaced resulted in excellent bite and was checked on C-arm fluoroscopy that it was centralized within the nail. Incisions were irrigated. Fascial layer was closed with 2-0 Vicryl. Lincoln were used on the skin. I injected Marcaine in the local area at the conclusion of the procedure. Attention was focused on the olecranon. The patient was then redraped on the hand table in the supine position. I made a longitudinal incision over the olecranon. Dissection was carried down through skin and subcutaneous tissues. Olecranon fracture was identified. There was significant comminution both medially and laterally in the region of the olecranon. I elected to proceed with plate fixation rather than a tension band K-wire fixation. I placed a Synthes olecranon plate with the oblong screw first. This was then adjusted for position and I placed 3 screws proximally in a locking fashion maintaining good alignment of the joint. I then placed 3 additional screws distally in a locking fashion resulted in stable fixation of the joint. The patient was placed through range of motion. There was no evidence of crepitation with range of motion. There was supple pronation, supination as well as flexion and extension. Incision was irrigated. Fascial layer was closed with a plate with 2-0 Vicryl Rapide. Yvan were used on the skin. The patient was placed in a posterior splint and sent to the PACU in stable condition. Postoperative plan will be partial weightbearing for the hip with platform walker. We will allow gentle motion of the elbow beginning on postop day 10-14. instructional support assistant, Israel Rodas PA-C, who was necessary for prepping, draping, retraction, exposure, closure, reprepping, redraping for the olecranon fracture, retraction, exposure, closure. I attest to the content of the Intraoperative Record and any orders documented therein. Any exception s are noted below.
[2020-04-06] MEDS ORDERED: DOCUSATE SODIUM 100 MG CAP PO SCH (21:00)
[2020-04-06] MEDS ORDERED: SENNA 8.6 MG TAB PO SCH (21:00)
[2020-04-06] MEDS: SODIUM CHLORIDE 0.9% 1000ML 1,000 ML IV SCH (21:10)
[2020-04-06] MEDS: FAMOTIDINE 20 MG in SYRINGE 3 ML IV SCH (21:15)
[2020-04-06] MEDS: DOCUSATE SODIUM/SENNA 50/8.6MG TAB PO SCH (21:15)
[2020-04-06] MEDS: ceFAZolin 1000MG 1,000 MG/7.5 ML SYR IV SCH (21:59)
[2020-04-07] MEDS: ceFAZolin 1000MG 1,000 MG/7.5 ML SYR IV SCH (05:41)
[2020-04-07] MEDS: SODIUM CHLORIDE 0.9% 1000ML 1,000 ML IV SCH (05:44)
[2020-04-07] MEDS ORDERED: ceFAZolin 2000MG 2,000 MG/15 ML SYR IV SCH (06:00)
[2020-04-07 06:36] LABS: Basophils # (auto) 0.01 K/uL (0-0.2); Basophils % (auto) 0.1 %; Hematocrit (blood only) 26.2 % (37-47); Hemoglobin 8.9 g/dL (12.0-16.0); Immature Granulocytes # (auto) 0.02 K/uL (0.00-0.02); Immature Granulocytes % (auto) 0.2 %; Lymphocytes # (auto) 1.03 K/uL (1.2-3.4); Lymphocytes % (auto) 10.7 %; Mean Corpuscular Hemoglobin 31.8 pg (25-34); Mean Corpuscular Volume 93.6 fL (80-100); Monocytes # (auto) 1.04 K/uL (0.11-0.59); Monocytes % (auto) 10.8 %; Neutrophils # (auto) 7.52 K/uL (1.4-6.5); Neutrophils % (auto) 78.2 %; Platelet Count 291 K/uL (130-400); RDW Coefficient of Variation 12.3 % (11.5-14.5); RDW Standard Deviation 41.8 fL (36.4-46.3); White Blood Count 9.62 K/uL (4.8-10.8)
[2020-04-07 06:39] LABS: Partial Thromboplastin Ratio 0.8; Partial Thromboplastin Time 23.1 Seconds (21.0-31.0); Prothrombin Time 10.1 Seconds (9.0-12.0)
[2020-04-07 07:04] LABS: Albumin Level 2.4 gm/dl (3.4-5.0); BUN Creatinine Ratio 20.7 (10-20); Calcium 7.6 mg/dl (8.5-10.1); Creatinine Clr Calc Pharmacy 50.7 ml/min; Est GFR (Non-African American) 72.5; Magnesium 2.1 mg/dl (1.8-2.4); Phosphorus 2.3 mg/dl (2.5-4.9); Potassium 3.7 mmol/L (3.5-5.1)
[2020-04-07] MEDS: ACETAMINOPHEN 325 MG TAB PO PRN ×2 (07:13→13:32)
[2020-04-07] MEDS: FAMOTIDINE 20 MG in SYRINGE 3 ML IV SCH (08:39)
[2020-04-07] MEDS: oxyCODONE HCL IR 5 MG TAB (IMMEDIATE RELEASE) PO PRN ×2 (08:39→13:33)
[2020-04-07] MEDS: HYDROmorphone INJ 0.5 MG/0.5 ML SYR IV PRN ×3 (11:20→20:37)
--- NOTE | 2020-04-07 11:40 | Orthopedic Progress Note ---
Date of Service April 07, 2020 Assessment & Plan (1) Hip fracture, right: Status post ORIF right olecranon, right hip cephalomedullary nail Postoperative day #1 -Ancef x24 -DVT prophylaxis: SCDs, teds, Lovenox daily -PT/OT -Nonweightbearing right upper extremity, partial weightbearing right lower extremity -A.m. labs: See above (2) Elbow fracture, right: Admission and Anticipated Discharge Date Admission Date: April 06, 2020 Subjective Post Operative Progress Note Patient seen sitting up in bed, comfortable, denies complaints, pain well controlled, no acute issues. Denies F/C/N/V/SOB/CP. Review of Systems Review of Systems: All systems reviewed & are unremarkable except as noted in HPI & below Physical Exam Physical Exam: Right upper extremity is neurovascular and sensory intact grossly, capillary refill less than 2 seconds, actively moving all 5 digits, dressing clean dry and intact sling immobilizer in place. Right lower extremity is neurovascular and sensory intact grossly, +2 dorsalis pedis pulse, compartment soft nontender, dressing clean dry and intact. Results & Data ([facility]) Vital Signs (Past 12 Hours) Vital Signs Temp Pulse Resp BP Pulse Ox 04/07/20 11:18 79 103/58 L 04/07/20 07:40 36.4 C L 84 16 95/57 L 96 04/07/20 02:38 36.9 C 89 16 99/63 L 99 Laboratory Results 04/07/20 04/07/20 04/07/20 Range/Units 06:02 06:02 06:02 WBC (4.8-10.8) K/uL RBC (4.2-5.4) M/uL Hgb (12.0-16.0) g/dL Hct (37-47) % MCV (80-100) fL MCH (25-34) pg MCHC (32-36) g/dL RDW Std Deviation (36.4-46.3) fL RDW Coeff of Dave (11.5-14.5) % Plt Count (130-400) K/uL MPV (7.4-10.4) fL Immature Gran % (Auto) % Neut % (Auto) % Lymph % (Auto) % Wilson % (Auto) % Eos % (Auto) % Baso % (Auto) % Neut # (Auto) (1.4-6.5) K/uL Lymph # (Auto) (1.2-3.4) K/uL Wilson # (Auto) (0.11-0.59) K/uL Eos # (Auto) (0-0.5) K/uL Baso # (Auto) (0-0.2) K/uL Immature Gran # (Auto) (0.00-0.02) K/uL PT 10.1 (9.0-12.0) Seconds INR 1.0 (0.9-1.1) APTT 23.1 (21.0-31.0) Seconds PTT Ratio 0.8 Sodium 136 (136-145) mmol/L Potassium 3.7 (3.5-5.1) mmol/L Chloride 105 (98-107) mmol/L Carbon Dioxide 24 (21-32) mmol/L Anion Gap 7.0 (3-11) BUN 17 (7-18) mg/dl Creatinine 0.82 (0.6-1.2) mg/dl Est Cr Clr Drug Dosing 50.7 ml/min Est GFR ( Amer) 84.0 Est GFR (Non-Af Amer) 72.5 BUN/Creatinine Ratio 20.7 H (10-20) Glucose 126 H (70-99) mg/dl Calcium 7.6 L D (8.5-10.1) mg/dl Phosphorus 2.3 L (2.5-4.9) mg/dl Magnesium 2.1 (1.8-2.4) mg/dl Albumin 2.4 L (3.4-5.0) gm/dl 25-OH Vitamin D Total 62.5 (30-100) ng/ml 04/07/20 Range/Units 06:02 WBC 9.62 (4.8-10.8) K/uL RBC 2.80 L (4.2-5.4) M/uL Hgb 8.9 L D (12.0-16.0) g/dL Hct 26.2 L (37-47) % MCV 93.6 (80-100) fL MCH 31.8 (25-34) pg MCHC 34.0 (32-36) g/dL RDW Std Deviation 41.8 (36.4-46.3) fL RDW Coeff of Dave 12.3 (11.5-14.5) % Plt Count 291 (130-400) K/uL MPV 9.0 (7.4-10.4) fL Immature Gran % (Auto) 0.2 % Neut % (Auto) 78.2 % Lymph % (Auto) 10.7 % Wilson % (Auto) 10.8 % Eos % (Auto) 0.0 % Baso % (Auto) 0.1 % Neut # (Auto) 7.52 H (1.4-6.5) K/uL Lymph # (Auto) 1.03 L (1.2-3.4) K/uL Wilson # (Auto) 1.04 H (0.11-0.59) K/uL Eos # (Auto) 0.00 (0-0.5) K/uL Baso # (Auto) 0.01 (0-0.2) K/uL Immature Gran # (Auto) 0.02 (0.00-0.02) K/uL PT (9.0-12.0) Seconds INR (0.9-1.1) APTT (21.0-31.0) Seconds PTT Ratio Sodium (136-145) mmol/L Potassium (3.5-5.1) mmol/L Chloride (98-107) mmol/L Carbon Dioxide (21-32) mmol/L Anion Gap (3-11) BUN (7-18) mg/dl Creatinine (0.6-1.2) mg/dl Est Cr Clr Drug Dosing ml/min Est GFR ( Amer) Est GFR (Non-Af Amer) BUN/Creatinine Ratio (10-20) Glucose (70-99) mg/dl Calcium (8.5-10.1) mg/dl Phosphorus (2.5-4.9) mg/dl Magnesium (1.8-2.4) mg/dl Albumin (3.4-5.0) gm/dl 25-OH Vitamin D Total (30-100) ng/ml (1) Hip fracture, right Encounter type: initial encounter Fracture type: closed Qualified Code(s): S72.001A - Fracture of unspecified part of neck of right femur, initial encounter for closed fracture (2) Elbow fracture, right Encounter type: initial encounter Fracture type: closed Qualified Code(s): S42.401A - Unspecified fracture of lower end of right humerus, initial encounter for closed fracture
[2020-04-07] MEDS: ENOXAPARIN INJ 40 MG/0.4 ML SYR SQ SCH (13:33)
--- NOTE | 2020-04-07 13:44 | Medical Student Progress Note ---
Date of Service April 07, 2020 Assessment & Plan (1) Hip fracture, right: 69 y/o female w. hx of hypertension who presented with a a right intertrochanteric fracture and a comminuted olecranon fracture following a fall while walking her dog. 1) Right Displaced Intertrochanteric Fracture- S/p IM nail by ortho -Post-op care per ortho. -PT/OT as she will likely have difficulty managing at home with both the leg and the right arm issues. -DEXA as an outpatient as she now is considered to have a diagnosis of osteoporosis. - Vit D level of 62.5 Will defer to ortho for preferred duration and pharmacologic agent for DVT prophy post-op. -Ancef x24 -DVT prophylaxis: SCDs, teds, Lovenox daily -Nonweightbearing right upper extremity, partial weightbearing right lower extremity 2) Right olecranon fracture- s/p ORIF with ortho -Post-op care per ortho as above 3) HTN- Continue home metoprolol and holding home lisinopril. Dispo: pending PT/OT eval and ortho clearance for discharge. Encounter type: initial encounter Fracture type: closed Qualified Code(s): S72.001A - Fracture of unspecified part of neck of right femur, initial encounter for closed fracture Admission and Anticipated Discharge Date Admission Date: April 06, 2020 Supervising Attestation I personally examined the patient and verified all aguayo points of history and exam, discussed case, and agree with decision making with Kathy Hill MS4. pain reasonable. got out of bed with help. no new complaints. viatls noted nad heent nc at mmm breathing unlabored no accessory muscles good effort skin no rashes no pallor or icterus neuro no focal deficits. (presumed osteoporotic) hip fx - POD1, PT/OT, anticipate rehab. pain control. outpt osteoporosis management. vitamin D OK acute blood loss (fracture related) and hemodilutional anemia - no indications for transfusion. follow. underweight w BMI 17.4 - risk for osteoporosis. otherwise as above. Subjective States that she feels well after surgery and has full sensation and movement of her L upper and lower extremities. She states that her pain is well controlled. Review of Systems Constitutional: no fever, no chills, no sweats and no weakness Respiratory: no cough, no dyspnea, no pain on inspiration and no wheezing Cardiovascular: no dyspnea, no palpitations, no syncope and no edema Gastrointestinal: no abdominal pain, no nausea, no vomiting and no change in bowel habits Neurologic: no tingling, no numbness, no paresthesia and no dizziness Physical Exam Constitutional: Well appearing female in no acute distress resting comfortably in bed Eyes: PERRL, conjunctivae normal, anicteric sclerae Neck: trachea midline, no thyromegaly Respiratory: Lungs clear to auscultation bilaterally, no wheezes, rales or rhonchi Cardiovascular: Regular rate and rhythm, no murmurs, rubs or extra heart sounds. Gastrointestinal (Abdomen): Normoactive bowel sounds, nontender to palpation, no hepatosplenomegaly. Musculoskeletal: Bandages clean, dry and intact on R upper extremity and R lower extremity. Neurovascularly intact in distal RUE and RLE Skin: no rashes, warm and dry Results & Data ([facility]) Vital Signs (Past 12 Hours) Vital Signs Temp Pulse Resp BP Pulse Ox 04/07/20 12:00 36.8 C 85 16 101/56 L 98 04/07/20 11:18 79 103/58 L 04/07/20 07:40 36.4 C L 84 16 95/57 L 96 04/07/20 02:38 36.9 C 89 16 99/63 L 99
[2020-04-07] MEDS: METOPROLOL SUCC 25MG EXT REL TAB PO SCH (16:29)
--- NOTE | 2020-04-07 17:58 | Billing Data ---
Date of Service April 07, 2020 Coding Level of Care Code 23979 Subseq Hosp Care Lvl 2
[2020-04-07] MEDS: FAMOTIDINE 20 MG TAB PO SCH (20:35)
[2020-04-07] MEDS: DOCUSATE SODIUM/SENNA 50/8.6MG TAB PO SCH (20:35)
[2020-04-08] MEDS: HYDROmorphone INJ 0.5 MG/0.5 ML SYR IV PRN ×2 (05:04→08:42)
[2020-04-08 06:05] LABS: Basophils # (auto) 0.01 K/uL (0-0.2); Basophils % (auto) 0.1 %; Hematocrit (blood only) 25.4 % (37-47); Hemoglobin 8.2 g/dL (12.0-16.0); Immature Granulocytes # (auto) 0.03 K/uL (0.00-0.02); Immature Granulocytes % (auto) 0.3 %; Lymphocytes # (auto) 0.71 K/uL (1.2-3.4); Lymphocytes % (auto) 8.3 %; Mean Corpuscular Hemoglobin 30.6 pg (25-34); Mean Corpuscular Hgb Conc 32.3 g/dL (32-36); Mean Corpuscular Volume 94.8 fL (80-100); Mean Platelet Volume 8.8 fL (7.4-10.4); Monocytes # (auto) 1.26 K/uL (0.11-0.59); Monocytes % (auto) 14.7 %; Neutrophils # (auto) 6.57 K/uL (1.4-6.5); Neutrophils % (auto) 76.6 %; Platelet Count 243 K/uL (130-400); RDW Coefficient of Variation 12.3 % (11.5-14.5); RDW Standard Deviation 42.5 fL (36.4-46.3); Red Blood Count 2.68 M/uL (4.2-5.4); White Blood Count 8.58 K/uL (4.8-10.8)
[2020-04-08 06:30] LABS: Albumin Level 2.3 gm/dl (3.4-5.0); BUN Creatinine Ratio 25.2 (10-20); Calcium 7.6 mg/dl (8.5-10.1); Creatinine Clr Calc Pharmacy 68.1 ml/min; Est GFR (African American) 106.5; Est GFR (Non-African American) 91.9; Potassium 3.8 mmol/L (3.5-5.1)
[2020-04-08 06:31] LABS: Phosphorus 2.3 mg/dl (2.5-4.9)
[2020-04-08] MEDS: FAMOTIDINE 20 MG TAB PO SCH (07:34)
[2020-04-08] MEDS: ENOXAPARIN INJ 40 MG/0.4 ML SYR SQ SCH (07:34)
--- NOTE | 2020-04-08 10:16 | Orthopedic Progress Note ---
Date of Service April 08, 2020 Assessment & Plan (1) Hip fracture, right: Status post ORIF right olecranon, right hip cephalomedullary nail Postoperative day #2 -DVT prophylaxis: SCDs, teds, Lovenox daily -PT/OT -Nonweightbearing right upper extremity, partial weightbearing right lower ex tremity -acute blood loss anemia, will defer to primary team re: transfusion if indicated. (2) Elbow fracture, right: Admission and Anticipated Discharge Date Admission Date: April 06, 2020 Subjective Post op Day #2 s/p ORIF right olecranon fracture and troch nail right hip Patient seen sitting up in bed, comfortable, denies complaints, pain well controlled, no acute issues. Denies F/C/N/V/SOB/CP. Physical Exam 2 Physical Exam: Vital Signs Temp 36.9 C 04/08/20 07:29 Pulse 76 04/08/20 07:29 Resp 16 04/08/20 07:29 BP 122/73 04/08/20 07:29 Pulse Ox 100 04/08/20 07:29 Intake & Output 04/07/20 04/08/20 04/08/20 18:59 06:59 18:59 Intake Total 500 / 700 200 / 700 Output Total 325 / 925 600 / 925 Balance 175 / -225 -400 / -225 Intake: Oral 500 / 700 200 / 700 Output: Urine 275 / 275 Urine Amount (Ca theter) 325 / 650 325 / 650 Ortega/Indwelli ng 325 / 650 325 / 650 Constitutional: WD/WN, vitals as above no acute distress Musculoskeletal: Right upper extremity is neurovascular and sensory intact grossly, capillary refill less than 2 seconds, actively moving all 5 digits, dressing clean dry and intact sling immobilizer in place. Right lower extremity is neurovascular and sensory intact grossly, +2 dorsalis pedis pulse, compartment soft nontender, dressing clean dry and intact. Results & Data ([facility]) Vital Signs (Past 12 Hours) Vital Signs Temp Pulse Resp BP Pulse Ox 04/08/20 07:29 36.9 C 76 16 122/73 100 04/07/20 22:50 36.8 C 87 16 107/67 98 Laboratory Results Laboratory Results WBC 8.58 K/uL (4.8-10.8) 04/08/20 05:50 RBC 2.68 M/uL (4.2-5.4) L 04/08/20 05:50 Hgb 8.2 g/dL (12.0-16.0) L 04/08/20 05:50 Hct 25.4 % (37-47) L 04/08/20 05:50 MCV 94.8 fL (80-100) 04/08/20 05:50 MCH 30.6 pg (25-34) 04/08/20 05:50 MCHC 32.3 g/dL (32-36) 04/08/20 05:50 RDW Std Deviation 42.5 fL (36.4-46.3) 04/08/20 05:50 RDW Coeff of Dave 12.3 % (11.5-14.5) 04/08/20 05:50 Plt Count 243 K/uL (130-400) 04/08/20 05:50 MPV 8.8 fL (7.4-10.4) 04/08/20 05:50 Immature Gran % (Auto) 0.3 % 04/08/20 05:50 Neut % (Auto) 76.6 % 04/08/20 05:50 Lymph % (Auto) 8.3 % 04/08/20 05:50 [place] % (Auto) 14.7 % 04/08/20 05:50 Eos % (Auto) 0.0 % 04/08/20 05:50 Baso % (Auto) 0.1 % 04/08/20 05:50 Neut # (Auto) 6.57 K/uL (1.4-6.5) H 04/08/20 05:50 Lymph # (Auto) 0.71 K/uL (1.2-3.4) L 04/08/20 05:50 [place] # (Auto) 1.26 K/uL (0.11-0.59) H 04/08/20 05:50 Eos # (Auto) 0.00 K/uL (0-0.5) 04/08/20 05:50 Baso # (Auto) 0.01 K/uL (0-0.2) 04/08/20 05:50 Immature Gran # (Auto) 0.03 K/uL (0.00-0.02) H 04/08/20 05:50 PT 10.1 Seconds (9.0-12.0) 04/07/20 06:02 INR 1.0 (0.9-1.1) 04/07/20 06:02 APTT 23.1 Seconds (21.0-31.0) 04/07/20 06:02 PTT Ratio 0.8 04/07/20 06:02 Sodium 131 mmol/L (136-145) L 04/08/20 05:50 Potassium 3.8 mmol/L (3.5-5.1) 04/08/20 05:50 Chloride 101 mmol/L (98-107) 04/08/20 05:50 Carbon Dioxide 26 mmol/L (21-32) 04/08/20 05:50 Anion Gap 4.0 (3-11) 04/08/20 05:50 BUN 15 mg/dl (7-18) 04/08/20 05:50 Creatinine 0.61 mg/dl (0.6-1.2) 04/08/20 05:50 Est Cr Clr Drug Dosing 68.1 ml/min 04/08/20 05:50 Est GFR ( Amer) 106.5 04/08/20 05:50 Est GFR (Non-Af Amer) 91.9 04/08/20 05:50 BUN/Creatinine Ratio 25.2 (10-20) H 04/08/20 05:50 Glucose 115 mg/dl (70-99) H 04/08/20 05:50 Calcium 7.6 mg/dl (8.5-10.1) L 04/08/20 05:50 Phosphorus 2.3 mg/dl (2.5-4.9) L 04/08/20 05:50 Magnesium 2.1 mg/dl (1.8-2.4) 04/07/20 06:02 Albumin 2.3 gm/dl (3.4-5.0) L 04/08/20 05:50 25-OH Vitamin D Total 62.5 ng/ml (30-100) 04/07/20 06:02 Urine Color Yellow 04/06/20 04:25 Urine Appearance Clear (Clear) 04/06/20 04:25 Urine pH 8.5 (4.5-7.5) H 04/06/20 04:25 Ur Specific [place] 1.007 (1.000-1.030) 04/06/20 04:25 Urine Protein Negative (Negative) 04/06/20 04:25 Urine Glucose (UA) Negative (Negative) 04/06/20 04:25 Urine Ketones Negative (Negative) 04/06/20 04:25 Urine Blood Negative (Negative) 04/06/20 04:25 Urine Nitrite Negative (Negative) 04/06/20 04:25 Urine Bilirubin Negative (Negative) 04/06/20 04:25 Urine Urobilinogen Negative (Negative) 04/06/20 04:25 Ur Leukocyte Esterase Negative (Negative) 04/06/20 04:25 SARS-CoV-2, RNA, NAAT NEGATIVE (NEGATIVE) 04/06/20 Unknown Blood Type B Positive 04/06/20 04:20 Antibody Screen NEGATIVE 04/06/20 04:20 (1) Hip fracture, right Encounter type: initial encounter Fracture type: closed Qualified Code(s): S72.001A - Fracture of unspecified part of neck of right femur, initial encounter for closed fracture (2) Elbow fracture, right Encounter type: initial encounter Fracture type: closed Qualified Code(s): S42.401A - Unspecified fracture of lower end of right humerus, initial encounter for closed fracture
[2020-04-08] MEDS: oxyCODONE HCL IR 5 MG TAB (IMMEDIATE RELEASE) PO PRN (15:22)
[2020-04-08] MEDS: METOPROLOL SUCC 25MG EXT REL TAB PO SCH (15:24)
--- NOTE | 2020-04-08 15:30 | Discharge Summary ---
Date of Service April 08, 2020 Admission HPI Per Admitting Provider The patient is a 69-year-old female with a past medical history including hypertension, allergic rhinitis, and vitamin D deficiency. She presents to the emergency department after developing acute right hip pain and right elbow pain after a fall while she was walking her dog. X-rays in the emergency department revealed a closed right hip fracture. She reports that her right hip pain pain is reasonably well controlled well staying still. Her right elbow pain is improving with application of ice. Admission Exam Per Admitting Provider The patient is awake, alert and oriented 3, well developed and well nourished, normocephalic and atraumatic, lying in bed and in no acute distress. HEENT--PERRL, EOMI, mucous membranes and oropharynx normal. Neck--supple. No JVD. No bruits. Thyroid normal, trachea midline, no adenopathy. Heart--normal S1 and S2. No murmurs, rubs or gallops. Lungs--clear bilaterally, no respiratory distress, no accessory muscle use. Abdomen--normal bowel sounds and soft. Nontender. Nondistended. Extremities--no cyanosis or clubbing. No edema. There are good distal pulses b/l. Dermatologic--normal skin turgor, normal color, no abnormal lymph nodes, no rash. Neurologic--cranial nerves II through XII grossly intact. Rheumatologic--decreased range of motion and pain over right hip Psychiatric--normal affect. Principal Diagnosis Hip fracture, elbow fracture Discharge Exam Constitutional Well appearing female resting comfortably in bed Eyes PERRL, conjunctivae normal, anicteric sclerae ENMT external ear and nose normal, oropharynx normal Respiratory Lungs clear to auscultation bilaterally, no wheezes, rales or rhonchi Cardiovascular Regular rate and rhythm, no murmurs, rubs or extra heart sounds. No peripheral edema. Gastrointestinal (Abdomen) Normoactive bowel sounds, nontender to palpation, no hepatosplenomegaly Musculoskeletal Surgical dressings clean dry and intact on R elbow, neurovascularly intact in R hand. Surgical dressings in place in R hip, neurovascularly intact in R foot. Psychiatric A+Ox3, euthymic affect Genitourinary Ortega catheter in place Discharge Data Allergies Allergy/AdvReac Type Severity Reaction Status Date / Time No Known Allergies Allergy Verified 04/06/20 04:20 Consultations 04/06/20 06:12 ED Decision to Admit Stat 04/06/20 09:09 Consult Case Management - Discharge Planning Routine Consult Case Management - Discharge Planning Routine Consult Orthopedic Surgery Routine Procedures Performed Operation Date: 04/06/20 14:00 Actual Procedures p Open Reduction Internal Fixation Right Olecranon Elbow(Right) - Jaime Joel MD s Intramedullary Anand Right Femur(Right) - Jaime Joel MD Ordered Studies 04/06/20 12:00 FL elbow RT 3V RTN Routine FL fluoroscopy <1hr Routine FL hip RT 2-3V Routine Hospital Course (1) Hip fracture, right: 69 y/o female w. hx of hypertension who presented with a a right intertrochanteric fracture and a comminuted olecranon fracture following a fall while walking her dog. 1) Right Displaced Intertrochanteric Fracture- S/p IM nail by ortho -Ancef for 24 hrs following surgery -DVT prophylaxis during hospitalization with SCDs, teds and Lovenox daily -DEXA as an outpatient as she now is considered to have a diagnosis of osteoporosis. - Vit D level within normal limits at 62.5 during hospitalization -D/C to rehab with partial weightbearing right lower extremity -F/u with ortho in outpatient setting 2) Right olecranon fracture- s/p ORIF with ortho -Managed as above, nonweightbearing right upper extremity 3) Blood loss anemia: Hgb of 12.5 -> 8.9 -> 8.2 over three days -Hemodynamically stable and asymptomatic throughout hospitalization with no signs of active bleeding. Likely secondary to surgical blood loss and hemodilution when compared to labs on admission. 4) HTN- Managed with home metoprolol succinate 25mg PO and home lisinopril 20mg PO. Total Time Total Time Spent Total Time Spent (In Minutes): <30 Discharge Plan Discharge Items Patient Disposition: Transfer Inpatient Rehab Fac Reason For Visit: CLOSED RT HIP FRACTURE Discharge Diagnosis: hip fracture, olecrenon fracture Activity: Per Instructions section Activity Comment: nonweight bearing RUE, partial weightbearing RLE Non-emergency contact: Primary Care Provider and Surgeon Call non-emergency contact if: you have any medication questions, your symptoms worsen and your pain is not controlled Follow-up/Referrals: Clementina Ortiz MD [Primary Care Provider] - Diet: Regular Addtl Attending Provider Instructions: per orthopedic surgery a/p today: (1) Hip fracture, right: Status post ORIF right olecranon, right hip cephalomedullary nail Postoperative day #2 -DVT prophylaxis: SCDs, teds, Lovenox daily -PT/OT -Nonweightbearing right upper extremity, partial weightbearing right lower extremity -acute blood loss anemia, will defer to primary team re: transfusion if indicated. medically has been quite stable, did show acute blood loss anemia - Hgb from 12.5 --> 8.2 (but has been stable in mid to low 8's last 2 days - would check ~2-3 days and/or prn symptoms) ---PCP to initiate osteoporosis treatment as outpt after rehab discharge Pending Studies at Discharge: No Stand-Alone Forms: My [employer], Opioid Pain Management Skilled Items Patient informed of condition?: Yes DNR: No Discharge Level of Care: Acute rehab Communicable Disease: No Discharge Prognosis: Improving Lines: None Urinary Catheter: No Medications and DC Order Prescriptions: New acetaminophen 325 mg Tablet 650 mg PO Q6H PRN (Reason: pain) Qty: 1 RF: 0 sennosides-docusate sodium [Senokot-S] 8.6-50 mg Tablet 2 tab PO HS Qty: 2 RF: 0 oxycodone 5 mg Tablet 5 mg PO Q4H PRN (Reason: breakthrough pain) Qty: 10 RF: 0 Continued multivitamin Tablet 1 tab PO QAM RF: 0 cetirizine [Zyrtec] 10 mg Tablet 10 mg PO QAM RF: 0 lisinopril 20 mg tablet 20 mg PO QDD RF: 0 acetaminophen [Tylenol Extra Strength] 500 mg Tablet 1,000 mg PO BID RF: 0 metoprolol succinate 25 mg tablet extended release 24 hr 25 mg PO QDD RF: 0 cholecalciferol (vitamin D3) [Vitamin D3] 25 mcg (1,000 unit) Capsule 25 mcg PO QAM RF: 0 psyllium husk [Metamucil] 0.52 gram Capsule 0.52 g PO DAILY RF: 0 calcium carbonate-vitamin D3 [Calcium 600 + D(3)] 600 mg(1,500mg) -400 unit Tablet 2 tab PO QAM RF: 0 aspirin 162.5 mg Capsule,Extended Release 24hr 162.5 mg PO QAM RF: 0 Discharge Orders: Discharge Order (Routine); Ordered 04/08/20 Ordered By: Claudio Crawford/Other Patient Handouts: Oxycodone tablets or capsules Admission Data Admit Date/Time: 04/06/20 06:43 Attending Provider: Claudio Acuna Admit Provider: Harvey Braun Primary Care Provider: Clementina Ortiz Other Providers: Harvey Braun ; Jaime Joel ; Jose Dean ; [facility] Other Interventions: Discharge Summary Assessment (RN) Last Done: 04/08/20 16:22 Supervising Physician Co-Signing Physician Notes I personally examined the patient and verified all aguayo points of history and exam, discussed case, and agree with decision making with Kathy Hill MS4. doing ok. nervous about rehab but feels OK w going. viatls noted nad heent nc at mmm breathing unlabored no accessory muscles good effort skin no rashes no pallor or icterus neuro no focal deficits. (presumed osteoporotic) hip fx - POD2, PT/OT, stable for rehab. outpt osteoporo sis management. vitamin D OK acute blood loss (fracture related) and hemodilutional anemia - no indications for transfusion. follow up as outpt. underweight w BMI 17.4 - risk for osteoporosis. otherwise as above.
== END 2020-04-08 17:24 | DRG 481 ==
LOC: ED 03:36 → SUATTDRO 06:43 → 3E 06:43